=== PATIENT | female | born 1935 | race Caucasian/White ===

== ENCOUNTER → 2016-10-18 | Outpatient (CLI) | payer MEDICARE, OTHER ==
--- NOTE | 2016-11-01 07:45 | MM ---
Reason for exam: screening (asymptomatic). Last mammogram was performed 10 months ago. History: Patient is postmenopausal, has history of breast cancer at age 57, and history of other cancer. Silicone gel implant in the left breast, 2004. Retro-pectoral silicone gel implant in the right breast, 2003. Took estrogen for 10 years beginning at age 47. Took antineoplastic for 5 years beginning at age 57. Physical Findings: A clinical breast exam by your physician is recommended on an annual basis and results should be correlated with mammographic findings. MG 3D Scr Ottoniel Unilateral W/Cad Bilateral CC and MLO view(s) were taken. Prior study comparison: December 23, 2015, mammogram, performed at [facility]. November 11, 2014, mammogram, performed at [facility]. October 29, 2013, mammogram, performed at [facility]. The breast tissue is almost entirely fat. There is chronic nodularity in the left breast. No significant changes when compared with prior studies. ASSESSMENT: Benign, BI-RAD 2 RECOMMENDATION: Routine screening mammogram of the right breast in 1 year.
== END | disposition home or self-care (01) ==
LOC: RADMAMWWP 10:18
PROVIDERS: ATTEND Internal Medicine Hematology & Oncology
DX: Z12.31 Encounter for screening mammogram for malignant neoplasm of breast (principal)
CPT/HCPCS: 77063; G0202

== ENCOUNTER → 2017-10-19 | Outpatient (CLI) | payer MEDICARE, OTHER ==
--- NOTE | 2017-10-23 13:13 | MM ---
Reason for exam: screening (asymptomatic). Last mammogram was performed 1 year ago. History: Patient is postmenopausal, has history of breast cancer at age 57, and history of other cancer. Silicone gel implant in the left breast, 2004. Retro-pectoral silicone gel implant in the right breast, 2003. Mastectomy of the right breast, 1997. Mastectomy of the right breast, 1992. Took estrogen for 10 years beginning at age 47. Took antineoplastic for 5 years beginning at age 57. Physical Findings: A clinical breast exam by your physician is recommended on an annual basis and results should be correlated with mammographic findings. MG 3D Scr Ottoniel Unilateral W/Cad CC, MLO, and ID view(s) were taken of the left breast. Prior study comparison: October 18, 2016, bilateral MG 3d scr ottoniel unilateral w/cad. December 23, 2015, mammogram, performed at [facility]. The breast tissue is heterogeneously dense. This may lower the sensitivity of mammography. Left breast prothesis. No significant changes when compared with prior studies. ASSESSMENT: Benign, BI-RAD 2 RECOMMENDATION: Routine screening mammogram of the left breast in 1 year.
== END | disposition home or self-care (01) ==
LOC: RADMAMWWP 11:07
PROVIDERS: ATTEND Internal Medicine
DX: Z12.31 Encounter for screening mammogram for malignant neoplasm of breast (principal)
CPT/HCPCS: 77067

== ENCOUNTER → 2018-10-22 | Outpatient (CLI) | payer MEDICARE, OTHER ==
--- NOTE | 2018-10-23 13:33 | MM ---
Reason for exam: screening (asymptomatic). Last mammogram was performed 1 year ago. History: Patient is postmenopausal, has history of breast cancer at age 57, and history of other cancer. Silicone gel implant in the left breast, 2004. Retro-pectoral silicone gel implant in the right breast, 2003. Mastectomy of the right breast, 1997. Mastectomy of the right breast, 1992. Took estrogen for 10 years beginning at age 47. Took antineoplastic for 5 years beginning at age 57. Physical Findings: A clinical breast exam by your physician is recommended on an annual basis and results should be correlated with mammographic findings. MG 3D Scr Ottoniel Unilateral W/Cad CC, MLO, and ID view(s) were taken of the left breast. Prior study comparison: October 19, 2017, bilateral MG 3d scr ottoniel unilateral w/cad. October 18, 2016, bilateral MG 3d scr ottoniel unilateral w/cad. The breast tissue is heterogeneously dense. This may lower the sensitivity of mammography. No suspicious abnormality. Left retropectoral silicone implant. No significant changes when compared with prior studies. ASSESSMENT: Negative, BI-RAD 1 RECOMMENDATION: Routine screening mammogram of both breasts.
== END | disposition home or self-care (01) ==
LOC: RADMAMWWP 10:10
PROVIDERS: ATTEND Internal Medicine
DX: Z12.31 Encounter for screening mammogram for malignant neoplasm of breast (principal); Z98.82 Breast implant status
CPT/HCPCS: 77067

== ENCOUNTER 2019-05-03 10:03 | Emergency (ER) | payer MEDICARE, OTHER ==
[2019-05-03 10:15] VITALS: RESP 18; TEMP 97.7
[2019-05-03] MEDS ORDERED: HYDROcodone/APAP 5-325MG 1 EACH TAB PO STA (10:26)
--- NOTE | 2019-05-03 10:44 | ED ---
Fall HPI - General Chief Complaint: Fall Stated Complaint: right arm pain, fall Time Seen by Provider: 05/03/19 10:20 Source: patient, RN notes reviewed Mode of arrival: ambulatory Limitations: no limitations - History of Present Illness Initial Comments: 83-year-old female presents emergency Department chief complaint of fall, right rib injury right arm injury patient states that she slipped on a curb by her car states that she fell directly onto her right elbow and right shoulder region. Patient states that she did not hit her head there is no loss conscious. Patient states that she struck her chest states it hurts to take a deep breath does not feel short of breath. Patient does have right prosthetic breast, she states is from breast cancer and states that she has a silicone implant. Patient denies any change in shape or feel. - Related Data Allergies Allergy/AdvReac Type Severity Reaction Status Date / Time morphine AdvReac Vomiting Verified 05/03/19 10:15 Review of Systems ROS Statement: Those systems with pertinent positive or pertinent negative responses have been documented in the HPI. ROS Other: All systems not noted in ROS Statement are negative. 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 Absent: scleral icterus, conjunctival injection, periorbital swelling ENT exam: Present: normal exam, normal oropharynx, mucous membranes moist Neck exam: Present: normal inspection, full ROM. Absent: tenderness, meningismus, lymphadenopathy Respiratory exam: Present: normal lung sounds bilaterally, chest wall tenderness (moderate right anterior to lateral). Absent: respiratory distress, wheezes, rales, rhonchi, stridor Cardiovascular Exam: Present: regular rate, normal rhythm, normal heart sounds. Absent: systolic murmur, diastolic murmur, rubs, gallop, clicks GI/Abdominal exam: Present: soft, normal bowel sounds. Absent: distended, tend erness, guarding, rebound, rigid Extremities exam: Present: other (moderate amount of swelling to the right arm from mid forearm to right shoulder tenderness of the right elbow limited range of motion mild tenderness of the right shoulder) Neurological exam: Present: alert, oriented X3, CN II-XII intact, reflexes normal. Absent: motor sensory deficit Skin exam: Present: warm, dry, intact, normal color. Absent: rash Course Vital Signs 05/03/19 10:10 Temperature 97.7 F Pulse Rate 98 Respiratory 18 Rate Blood Pressure 115/65 O2 Sat by Pulse 92 L Oximetry Procedures - Orthopedic Splinting/Casting Injury #1 Side: right Upper Extremity Injury Location: long arm, elbow Upper Extremity Immobilizer: sling/shoulder immobilizer, posterior splint, synthetic pre-padded splint Medical Decision Making - Medical Decision Making x-ray shows olecranon fracture, x-ray of the ribs shows rib fracture with no obvious pneumothorax. Patient will be discharged in a splint with follow-up with her orthopedic physician on Monday. Disposition Clinical Impression: Fall, Fracture of olecranon process, right, closed, Right rib fracture Disposition: HOME SELF-CARE Condition: Stable Instructions (If sedation given, give patient instructions): Arm Fracture in Adults (ED) Additional Instructions: Please return to the Emergency Department if symptoms worsen or any other concerns. Is patient prescribed a controlled substance at d/c from ED?: No Referrals: Armando Ramsay MD [Primary Care Provider] - 1-2 days Time of Disposition: 11:23
--- NOTE | 2019-05-03 11:12 | XR ---
EXAMINATION TYPE: XR humerus RT DATE OF EXAM: 05/03/2019 CLINICAL HISTORY: pain COMPARISON: NONE TECHNIQUE: Frontal and lateral images of the right humerus are obtained. FINDINGS: There is no acute fracture/dislocation evident. The joint spaces appear within normal limi ts. The overlying soft tissue appears unremarkable. Bicipital calcific tendinopathy noted. IMPRESSION: There is no acute fracture or dislocation.ICD 10 NO FRACTURE, INITIAL EVALUATION
--- NOTE | 2019-05-03 11:13 | XR ---
EXAMINATION TYPE: XR elbow complete RT DATE OF EXAM: 05/03/2019 COMPARISON: None HISTORY: Fall, pain TECHNIQUE: Three-view right elbow FINDINGS: Radius aligns normally with the humerus. There is a comminuted fracture of the olecranon. H umerus remains in normal orientation with the ulna. Soft tissue swelling is present. There is elevati on of the anterior and posterior fat pads. There may be a radiopaque foreign body within the distal u pper extremity adjacent to the distal diaphyseal humerus. IMPRESSION: 1. Comminuted fracture posterior olecranon. 2. Soft tissue swelling and joint effusion. 3. Possible foreign body within the soft tissues of the distal upper extremity at the level of the di stal diaphyseal humerus.
--- NOTE | 2019-05-03 11:15 | XR ---
EXAMINATION TYPE: XR ribs RT w pa chest xray DATE OF EXAM: 05/03/2019 COMPARISON: None HISTORY: Fall, right rib pain TECHNIQUE: Right ribs examined in 2 views and supplemented with a frontal chest. FINDINGS: r heart size is normal. Pulmonary vasculature is normal. Small rounded densities in the rig ht lung apex measuring 0.4 cm. No pneumothorax is evident. Right ribs appear intact. IMPRESSION: 1. Normal right ribs
[2019-05-03] MEDS ORDERED: ACET/COD 300 MG/30 MG STARTER PACK 6 TAB BTL PO STA (11:24)
[2019-05-03 12:03] VITALS: BP 120/66; PULSE 89
== END 2019-05-03 12:01 | disposition home or self-care (01) ==
LOC: EC 10:03
DX: S52.021A Displaced fracture of olecranon process without intraarticular extension of right ulna, initial encounter for closed fracture (principal); S22.31XA Fracture of one rib, right side, initial encounter for closed fracture; Z88.5 Allergy status to narcotic agent; Z85.3 Personal history of malignant neoplasm of breast; Z90.11 Acquired absence of right breast and nipple; Z98.82 Breast implant status; W01.0XXA Fall on same level from slipping, tripping and stumbling without subsequent striking against object, initial encounter; Y92.009 Unspecified place in unspecified non-institutional (private) residence as the place of occurrence of the external cause
CPT/HCPCS: 29105; 99283

== ENCOUNTER 2020-04-03 11:03 | Emergency (ER) | payer MEDICARE, OTHER ==
[2020-04-03 11:07] VITALS: RESP 18
[2020-04-03] MEDS ORDERED: ONDANSETRON 4 MG/2 ML VIAL IVP STA (11:55)
[2020-04-03] MEDS ORDERED: HYDROmorphone 0.5 MG/0.5 ML SYRINGE IVP STA (11:55)
--- NOTE | 2020-04-03 12:15 | XR ---
EXAMINATION TYPE: XR chest 2V DATE OF EXAM: 04/03/2020 COMPARISON: 05/03/2019 INDICATION: Pain TECHNIQUE: Frontal and lateral views of the chest are obtained. FINDINGS: The heart size is normal. The pulmonary vasculature is normal. There is a stable 0.4 cm nodule within the periphery of the right apex.. IMPRESSION: 1. No acute pulmonary process 2. Stable nodule right apex. Follow-up exam in one year to confirm continued stability over the cours e of 2 years is recommended.
--- NOTE | 2020-04-03 12:27 | ED ---
General Adult HPI - General Chief complaint: Back Pain/Injury Stated complaint: lt sided pain Time Seen by Provider: 04/03/20 11:11 Source: patient, RN notes reviewed Mode of arrival: ambulatory Limitations: no limitations - History of Present Illness Initial comments: 84-year-old female with a past medical history of hypertension, breast cancer presents to the emergency room for left upper back pain. Patient reports she woke up with this 6 days ago. She denies any injuries that she is aware of. States it is around her scapula. Patient states that moving the arm worsens the pain. Patient reports that movement worsens the pain especially walking and bending over. She states that sometimes her arm left arm feels tingly. She denies any weakness in the left arm. She denies any pain radiating to the chest. Denies any associated nausea or diaphoresis. Denies associated shortness of breath Patient has no other complaints at this time including shortness of breath, chest pain, abdominal pain, nausea or vomiting, headache, or visual changes. - Related Data Home Medications Medication Instructions Recorded Confirmed Aspirin EC [Ecotrin Low Dose] 81 mg PO HS 04/03/20 04/03/20 Atorvastatin [Lipitor] 40 mg PO HS 04/03/20 04/03/20 Calcium Carbonate [Calcium] 600 mg PO DAILY 04/03/20 04/03/20 Diltiazem HCl [Cardizem CD] 120 mg PO DAILY 04/03/20 04/03/20 Escitalopram [Lexapro] 5 mg PO DAILY 04/03/20 04/03/20 Omeprazole [PriLOSEC] 20 mg PO AC-BRKFST 04/03/20 04/03/20 Vit C/E/Zn/Coppr/Lutein/Zeaxan 1 cap PO BID 04/03/20 04/03/20 [Preservision Areds 2 Softgel] cycloSPORINE [Restasis] 1 drop BOTH EYES BID 04/03/20 04/03/20 traZODone HCL [Desyrel] 50 mg PO HS 04/03/20 04/03/20 Previous Rx's Medication Instructions Recorded Cyclobenzaprine [Flexeril] 10 mg PO TID #10 tab 04/03/20 Lidocaine 5% Patch [Lidoderm 5% 1 patch TOPICAL DAILY PRN 5 Days 04/03/20 Patch] #5 patch Allergies Allergy/AdvReac Type Severity Reaction Status Date / Time morphine AdvReac Vomiting Verified 04/03/20 11:06 Review of Systems ROS Statement: Those systems with pertinent positive or pertinent negative responses have been documented in the HPI. ROS Other: All systems not noted in ROS Statement are negative. 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 Absent: scleral icterus, conjunctival injection, periorbital swelling ENT exam: Present: normal exam, mucous membranes moist Neck exam: Present: normal inspection, full ROM. Absent: tenderness, meningismus, lymphadenopathy Respiratory exam: Present: normal lung sounds bilaterally. Absent: respiratory distress, wheezes, rales, rhonchi, stridor Cardiovascular Exam: Present: regular rate, normal rhythm, normal heart sounds. Absent: systolic murmur, diastolic murmur, rubs, gallop, clicks GI/Abdominal exam: Present: soft, normal bowel sounds. Absent: distended, tenderness, guarding, rebound, rigid Extremities exam: Present: normal capillary refill (Radial pulses 2+ in upper extremities bilaterally.), other (Normal extremity exam. However patient does have pain or sitting in the back when she abducts and flexes the left shoulder.) Back exam: Present: muscle spasm (Muscle spasms noted medial to the left scapula.), other (Patient has tenderness medial to the left scapula as well as inferior to the left scapula.) Course Vital Signs 04/03/20 11:04 Temperature 97.8 F Pulse Rate 79 Respiratory 18 Rate Blood Pressure 136/68 O2 Sat by Pulse 99 Oximetry EKG Findings - EKG Comments: EKG Findings:: Sinus rhythm with a first-degree AV block. Ventricular rate 66, AK interval 220, QTC 436 Medical Decision Making - Medical Decision Making Vitals are stable. CBC CMP unremarkable. Troponin is negative. D-dimer is 0.41. Chest x-ray shows no acute process. There is a stable 0.4 cm right pul monary nodule. Follow-up in a year to confirm stability. Symptoms are consistent with musculoskeletal back pain given pain worsens with movement, is reproducible on exam, and is causing paresthesia. Patient will continue to take tramadol and Motrin at home. She will be prescribed lidocaine patches and a muscle relaxer. She will follow-up with her doctor. She will return here for any worsening symptoms. - Lab Data Result diagrams: 04/03/20 12:23 04/03/20 12:23 Lab Results 04/03/20 04/03/20 04/03/20 Range/Units 12:23 12: 12:23 WBC 5.7 (3.8-10.6) k/uL RBC 4.64 (3.80-5.40) m/uL Hgb 14.5 (11.4-16.0) gm/dL Hct 41.8 (34.0-46.0) % MCV 90.1 (80.0-100.0) fL MCH 31.2 (25.0-35.0) pg MCHC 34.6 (31.0-37.0) g/dL RDW 12.7 (11.5-15.5) % Plt Count 157 (150-450) k/uL MPV 8.9 Neutrophils % 57 % Lymphocytes % 31 % Monocytes % 8 % Eosinophils % 2 % Basophils % 1 % Neutrophils # 3.3 (1.3-7.7) k/uL Lymphocytes # 1.8 (1.0-4.8) k/uL Monocytes # 0.4 (0-1.0) k/uL Eosinophils # 0.1 (0-0.7) k/uL Basophils # 0.1 (0-0.2) k/uL D-Dimer 0.41 (<0.60) mg/L FEU Sodium 138 (137-145) mmol/L Potassium 4.1 (3.5-5.1) mmol/L Chloride 103 (98-107) mmol/L Carbon Dioxide 30 (22-30) mmol/L Anion Gap 5 mmol/L BUN 17 (7-17) mg/dL Creatinine 0.59 (0.52-1.04) mg/dL Est GFR (CKD-EPI)AfAm >90 (>60 ml/min/1.73 sqM) Est GFR (CKD-EPI)NonAf 86 (>60 ml/min/1.73 sqM) Glucose 113 H (74-99) mg/dL Calcium 9.2 (8.4-10.2) mg/dL Total Bilirubin 0.6 (0.2-1.3) mg/dL AST 19 (14-36) U/L ALT 11 (4-34) U/L Alkaline Phosphatase 62 (38-126) U/L Troponin I (0.000-0.034) ng/mL Total Protein 6.8 (6.3-8.2) g/dL Albumin 4.2 (3.5-5.0) g/dL 04/03/20 Range/Units 12:23 WBC (3.8-10.6) k/uL RBC (3.80-5.40) m/uL Hgb (11.4-16.0) gm/dL Hct (34.0-46.0) % MCV (80.0-100.0) fL MCH (25.0-35.0) pg MCHC (31.0-37.0) g/dL RDW (11.5-15.5) % Plt Count (150-450) k/uL MPV Neutrophils % % Lymphocytes % % Monocytes % % Eosinophils % % Basophils % % Neutrophils # (1.3-7.7) k/uL Lymphocytes # (1.0-4.8) k/uL Monocytes # (0-1.0) k/uL Eosinophils # (0-0.7) k/uL Basophils # (0-0.2) k/uL D-Dimer (<0.60) mg/L FEU Sodium (137-145) mmol/L Potassium (3.5-5.1) mmol/L Chloride (98-107) mmol/L Carbon Dioxide (22-30) mmol/L Anion Gap mmol/L BUN (7-17) mg/dL Creatinine (0.52-1.04) mg/dL Est GFR (CKD-EPI)AfAm (>60 ml/min/1.73 sqM) Est GFR (CKD-EPI)NonAf (>60 ml/min/1.73 sqM) Glucose (74-99) mg/dL Calcium (8.4-10.2) mg/dL Total Bilirubin (0.2-1.3) mg/dL AST (14-36) U/L ALT (4-34) U/L Alkaline Phosphatase (38-126) U/L Troponin I <0.012 (0.000-0.034) ng/mL Total Protein (6.3-8.2) g/dL Albumin (3.5-5.0) g/dL Disposition Clinical Impression: Back pain Disposition: HOME SELF-CARE Condition: Good Instructions (If sedation given, give patient instructions): Back Pain (ED) Additional Instructions: Please continue to take your pain medications as directed. Take Flexeril but do not drive or operate machinery while taking this as it may make you drowsy. Follow-up with your doctor in one to 2 days. Return to the emergency room for any worsening symptoms. Prescriptions: Cyclobenzaprine [Flexeril] 10 mg PO TID #10 tab Lidocaine 5% Patch [Lidoderm 5% Patch] 1 patch TOPICAL DAILY PRN 5 Days #5 patch PRN Reason: Pain Is patient prescribed a controlled substance at d/c from ED?: No Referrals: Armando Ramsay MD [Primary Care Provider] - 1-2 days Time of Disposition: 13:33
[2020-04-03 12:35] LABS: Basophils # (A) 0.1 k/uL (0-0.2); Basophils % (A) 1 %; Eosinophils # (A) 0.1 k/uL (0-0.7); Eosinophils % (A) 2 %; HCT 41.8 % (34.0-46.0); HGB 14.5 gm/dL (11.4-16.0); Lymphocytes # (A) 1.8 k/uL (1.0-4.8); Lymphocytes % (A) 31 %; MCH 31.2 pg (25.0-35.0); MCHC 34.6 g/dL (31.0-37.0); MCV 90.1 fL (80.0-100.0); Mean Platelet Volume 8.9; Monocytes # (A) 0.4 k/uL (0-1.0); Monocytes % (A) 8 %; Neutrophils # (A) 3.3 k/uL (1.3-7.7); Neutrophils % (A) 57 %; Platelet Count 157 k/uL (150-450); RBC 4.64 m/uL (3.80-5.40); RDW 12.7 % (11.5-15.5); WBC 5.7 k/uL (3.8-10.6)
[2020-04-03 12:48] LABS: ALT 11 U/L (4-34); AST 19 U/L (14-36); African American GFR (CKD) >90 (>60 ml/min/1.73 sqM); Albumin 4.2 g/dL (3.5-5.0); Alkaline Phosphatase 62 U/L (38-126); Anion Gap 5 mmol/L; Blood Urea Nitrogen 17 mg/dL (7-17); Calcium 9.2 mg/dL (8.4-10.2); Carbon Dioxide 30 mmol/L (22-30); Chloride 103 mmol/L (98-107); Glucose 113 mg/dL (74-99); Non-African American GFR(CKD) 86 (>60 ml/min/1.73 sqM); Potassium 4.1 mmol/L (3.5-5.1); Sodium 138 mmol/L (137-145); Total Bilirubin 0.6 mg/dL (0.2-1.3); Total Protein 6.8 g/dL (6.3-8.2)
[2020-04-03 13:59] VITALS: BP 124/76; PULSE 75; TEMP 98.3
== END 2020-04-03 13:59 | disposition home or self-care (01) ==
LOC: EC 11:03
DX: M54.6 Pain in thoracic spine (principal); I10 Essential (primary) hypertension; Z88.5 Allergy status to narcotic agent; Z79.899 Other long term (current) drug therapy; Z85.3 Personal history of malignant neoplasm of breast; Z90.11 Acquired absence of right breast and nipple; Z98.49 Cataract extraction status, unspecified eye
CPT/HCPCS: 36415; 93005; 85379; 80053; 84484; 85025; 71046; 99284; 96374; 96375; J2405; J1170

== ENCOUNTER 2020-05-07 22:25 | Emergency (ER) | payer MEDICARE, OTHER ==
[2020-05-07 22:32] VITALS: RESP 19
[2020-05-07] MEDS ORDERED: SODIUM CHLORIDE 0.9% 1,000 ML IV STA (22:40)
--- NOTE | 2020-05-07 22:46 | ED ---
Fall HPI - General Chief Complaint: Fall Stated Complaint: Fall Time Seen by Provider: 05/07/20 22:40 Source: EMS Mode of arrival: EMS Limitations: no limitations - History of Present Illness Initial Comments: This is an 82-year-old female DF status post fall positive alcohol intoxication. Patient did fall hit her head, complaining of no pain. No head and neck pain. No loss of consciousness. Patient has no other injury factors and tripping fall. No headache chest pain shortness breath or abdominal pain MD Complaint: fall -: hour(s) Fall From: standing When Fall Occurred: 1 hour TAPE TRANSF[employer] Fall Witnessed: yes, by family Place Fall Occurred: home Loss of Consciousness: none Prolonged Down Time?: no Symptoms Prior to Fall: none Location: head, face Severity: moderate Severity scale (1-10): 5 Quality: burning Context: tripped/slipped, alcohol use Associated Symptoms: denies - Related Data Home Medications Medication Instructions Recorded Confirmed Aspirin EC [Ecotrin Low Dose] 81 mg PO HS 04/03/20 04/03/20 Atorvastatin [Lipitor] 40 mg PO HS 04/03/20 04/03/20 Calcium Carbonate [Calcium] 600 mg PO DAILY 04/03/20 04/03/20 Diltiazem HCl [Cardizem CD] 120 mg PO DAILY 04/03/20 04/03/20 Escitalopram [Lexapro] 5 mg PO DAILY 04/03/20 04/03/20 Omeprazole [PriLOSEC] 20 mg PO AC-BRKFST 04/03/20 04/03/20 Vit C/E/Zn/Coppr/Lutein/Zeaxan 1 cap PO BID 04/03/20 04/03/20 [Preservision Areds 2 Softgel] cycloSPORINE [Restasis] 1 drop BOTH EYES BID 04/03/20 04/03/20 traZODone HCL [Desyrel] 50 mg PO HS 04/03/20 04/03/20 Previous Rx's Medication Instructions Recorded Cyclobenzaprine [Flexeril] 10 mg PO TID #10 tab 04/03/20 Lidocaine 5% Patch [Lidoderm 5% 1 patch TOPICAL DAILY PRN 5 Days 04/03/20 Patch] #5 patch Allergies Allergy/AdvReac Type Severity Reaction Status Date / Time morphine AdvReac Vomiting Verified 05/07/20 22:32 Review of Systems ROS Statement: Those systems with pertinent positive or pertinent negative responses have been documented in the HPI. ROS Other: All systems not noted in ROS Statement are negative. 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 Absent: atraumatic (Significant mild edema and hematoma) Eye exam: Present: normal appearance, PERRL, EOMI, other (No hyphema, eye swollen shut). Absent: scleral icterus, conjunctival injection, periorbital swelling ENT exam: Present: normal exam, mucous membranes moist Neck exam: Present: normal inspection. Absent: tenderness, meningismus, lymphadenopathy Respiratory exam: Present: normal lung sounds bilaterally. Absent: respiratory distress, wheezes, rales, rhonchi, stridor Cardiovascular Exam: Present: regular rate, normal rhythm, normal heart sounds. Absent: systolic murmur, diastolic murmur, rubs, gallop, clicks GI/Abdominal exam: Present: soft, normal bowel sounds. Absent: distended, tenderness, guarding, rebound, rigid Extremities exam: Present: normal inspection, full ROM, normal capillary refill. Absent: tenderness, pedal edema, joint swelling, calf tenderness Back exam: Present: normal inspection Neurological exam: Present: alert, oriented X3, CN II-XII intact Psychiatric exam: Present: normal affect, normal mood Skin exam: Present: warm, dry, intact, normal color. Absent: rash Course Vital Signs 05/07/20 22:30 Temperature 98.5 F Pulse Rate 68 Respiratory 19 Rate Blood Pressure 127/71 O2 Sat by Pulse 90 L Oximetry - Reevaluation(s) Reevaluation #1: 05/07/20 23:50 Medical record is reviewed Reevaluation #2: 05/07/20 23:50 Patient denying any pain here in the ER Medical Decision Making - Medical Decision Making 84 female DF for evaluation patient status post trip and fall of alcohol intake. Patient has left significant periorbital hematoma and edema. Otherwise no other issues. Patient can be discharged home - Lab Data Result diagrams: 05/07/20 23:14 05/07/20 23:14 Lab Results 05/07/20 05/07/20 05/07/20 Range/Units 23:14 23:14 23:14 WBC 4.5 (3.8-10.6) k/uL RBC 4.36 (3.80-5.40) m/uL Hgb 13.8 (11.4-16.0) gm/dL Hct 39.4 (34.0-46.0) % MCV 90.4 (80.0-100.0) fL MCH 31.7 (25.0-35.0) pg MCHC 35.1 (31.0-37.0) g/dL RDW 13.1 (11.5-15.5) % Plt Count 153 (150-450) k/uL MPV 8.2 Neutrophils % 50 % Lymphocytes % 37 % Monocytes % 6 % Eosinophils % 3 % Basophils % 1 % Neutrophils # 2.2 (1.3-7.7) k/uL Lymphocytes # 1.6 (1.0-4.8) k/uL Monocytes # 0.3 (0-1.0) k/uL Eosinophils # 0.1 (0-0.7) k/uL Basophils # 0.1 (0-0.2) k/uL Potassium 3.5 (3.5-5.1) mmol/L Plasma Lactic Acid David 2.1 H* (0.7-2.0) mmol/L - EKG Data -: EKG Interpreted by Me (EKG is sinus rhythm 65 AK 260 QRS 90 QTC 468) - Radiology Data Radiology results: report reviewed (CT brain C-spine chest and pelvis x-ray negative for acute medical injury fracture), image reviewed Disposition Clinical Impression: Fall, Alcohol intoxication, Traumatic hematoma of left orbit Disposition: HOME SELF-CARE Condition: Good Instructions (If sedation given, give patient instructions): Hematoma (ED) Is patient prescribed a controlled substance at d/c from ED?: No Referrals: Armando Ramsay MD [Primary Care Provider] - 1-2 days
[2020-05-07] MEDS ORDERED: BACITRACIN OINT 1 EACH PACKET TOPICAL ONE (22:50)
--- NOTE | 2020-05-07 23:05 | XR ---
EXAM: XR Pelvis, 1 or 2 Views CLINICAL HISTORY: ITS.REASON XR Reason: fal TECHNIQUE: Frontal view of the pelvis. COMPARISON: No relevant prior studies available. FINDINGS: Bones/joints: No acute fracture. No dislocation. Mild bilateral hip osteoarthrosis. Soft tissues: Severely distended bladder. IMPRESSION: No acute findings.
--- NOTE | 2020-05-07 23:08 | CT ---
EXAM: CT Head Without Intravenous Contrast CLINICAL HISTORY: [email or web address] CT Reason: fall TECHNIQUE: Axial computed tomography images of the head/brain without intravenous contrast. CTDI is 25.8 mGy and DLP is 699.5 mGy-cm. This CT exam was performed using one or more of the following dose reduction techniques: automated exposure control, adjustment of the mA and/or kV according to patient size, and/or use of iterative reconstruction technique. COMPARISON: No relevant prior studies available. FINDINGS: Brain: No hemorrhage or mass effect. Ventricles: No hydrocephalus. Bones/joints: Unremarkable. Soft tissues: Left frontal scalp soft tissue swelling. Sinuses: Unremarkable. Mastoid air cells: Clear. IMPRESSION: No acute hemorrhage, hydrocephalus, or mass effect. EXAM: CT Cervical Spine Without Intravenous Contrast CLINICAL HISTORY: ITS.[email or web address] CT Reason: fall TECHNIQUE: Axial computed tomography images of the cervical spine without intravenous contrast. CTDI is 13.9 mGy and DLP is 434.7 mGy-cm. This CT exam was performed using one or more of the following dose reduction techniques: automated exposure control, adjustment of the mA and/or kV according to patient size, and/or use of iterative reconstruction technique. COMPARISON: No relevant prior studies available. FINDINGS: Vertebrae: No acute fracture. Chronic spondylolisthesis from C3-C6. Discs/spinal canal/neural foramina: Severe disc height loss and endplate sclerotic changes at C5-6 and C6-7.. Soft tissues: No prevertebral swelling. Upper lungs: Cluster of micronodules in the left lung apex. IMPRESSION: 1. No acute fracture or subluxation. 2. Cluster of micronodules in the left lung apex. Possibly infectious/inflammatory process.
--- NOTE | 2020-05-07 23:11 | CT ---
EXAM: CT Head and Maxillofacial Without Intravenous Contrast CLINICAL HISTORY: ITS.REASON CT Reason: fall TECHNIQUE: Axial computed tomography images of the head/brain and face without intravenous contrast. CTDI is 14 mGy and DLP is 434 mGy-cm. This CT exam was performed using one or more of the following dose reduction techniques: automated exposure control, adjustment of the mA and/or kV according to patient size, and/or use of iterative reconstruction technique. COMPARISON: No relevant prior studies available. FINDINGS: Bones/joints: No acute fracture. Soft tissues: Left frontal scalp and left periorbital soft tissue swelling. Sinuses: Moderate right sphenoid sinus mucosal thickening. No acute sinusitis. Mastoid air cells: Unremarkable. No mastoid effusion. Orbits: Unremarkable. IMPRESSION: No acute fracture.
--- NOTE | 2020-05-07 23:19 | XR ---
EXAM: XR Chest, 1 View CLINICAL HISTORY: [email or web address].REASON XR Reason: fal TECHNIQUE: Frontal view of the chest. COMPARISON: No relevant prior studies available. IMPRESSION: Cardiomegaly. Mild vascular congestion. No consolidation or pleural effusion.
[2020-05-07 23:30] LABS: Basophils # (A) 0.1 k/uL (0-0.2); Basophils % (A) 1 %; Eosinophils # (A) 0.1 k/uL (0-0.7); Eosinophils % (A) 3 %; HCT 39.4 % (34.0-46.0); HGB 13.8 gm/dL (11.4-16.0); Lymphocytes # (A) 1.6 k/uL (1.0-4.8); Lymphocytes % (A) 37 %; MCH 31.7 pg (25.0-35.0); MCHC 35.1 g/dL (31.0-37.0); MCV 90.4 fL (80.0-100.0); Mean Platelet Volume 8.2; Monocytes # (A) 0.3 k/uL (0-1.0); Monocytes % (A) 6 %; Neutrophils # (A) 2.2 k/uL (1.3-7.7); Neutrophils % (A) 50 %; Platelet Count 153 k/uL (150-450); RBC 4.36 m/uL (3.80-5.40); RDW 13.1 % (11.5-15.5); WBC 4.5 k/uL (3.8-10.6)
[2020-05-07 23:40] LABS: Potassium 3.5 mmol/L (3.5-5.1)
[2020-05-07 23:41] LABS: ALT 13 U/L (4-34); AST 22 U/L (14-36); African American GFR (CKD) >90 (>60 ml/min/1.73 sqM); Albumin 4.1 g/dL (3.5-5.0); Alkaline Phosphatase 71 U/L (38-126); Anion Gap 8 mmol/L; Blood Urea Nitrogen 13 mg/dL (7-17); Calcium 8.6 mg/dL (8.4-10.2); Carbon Dioxide 26 mmol/L (22-30); Chloride 108 mmol/L (98-107); Creatine Kinase 45 U/L (30-135); Glucose 113 mg/dL (74-99); Magnesium 2.1 mg/dL (1.6-2.3); Non-African American GFR(CKD) 88 (>60 ml/min/1.73 sqM); Phosphorus 3.7 mg/dL (2.5-4.5); Sodium 142 mmol/L (137-145); Total Bilirubin 0.4 mg/dL (0.2-1.3); Total Protein 6.7 g/dL (6.3-8.2)
[2020-05-07 23:49] LABS: Alcohol 220 mg/dL
[2020-05-07 23:52] LABS: Partial Thromboplastin Time 23.3 sec (22.0-30.0); Prothrombin Time 10.7 sec (9.0-12.0)
[2020-05-08 00:33] VITALS: BP 112/75; PULSE 87; TEMP 97.7
== END 2020-05-08 00:07 | disposition home or self-care (01) ==
LOC: EC 22:25
DX: S05.12XA Contusion of eyeball and orbital tissues, left eye, initial encounter (principal); F10.129 Alcohol abuse with intoxication, unspecified; Y90.9 Presence of alcohol in blood, level not specified; Z79.899 Other long term (current) drug therapy; Z79.82 Long term (current) use of aspirin; Z88.5 Allergy status to narcotic agent; Z85.3 Personal history of malignant neoplasm of breast; W01.0XXA Fall on same level from slipping, tripping and stumbling without subsequent striking against object, initial encounter; Y92.009 Unspecified place in unspecified non-institutional (private) residence as the place of occurrence of the external cause
CPT/HCPCS: 36415; 93005; 80053; 82550; 83605; 83735; 84100; 84484; 85025; 85610; 85730; 72170; 71045; 72125; 70486; 70450; 99284; 96360; G0480; 80320